=== PATIENT | female | born 1940 | race African-American/Black ===

== ENCOUNTER 2017-02-11 10:49 | Emergency (ER) | payer MEDICAID, MEDICARE, OTHER ==
[~2017-02-11] VITALS: Ht 165.1 cm; Wt 95.0 kg
[2017-02-11 10:56] VITALS: BP 0/0
== END 2017-02-11 10:52 | disposition expired ==
LOC: ER 10:49
DX: R09.2 Respiratory arrest (principal); J45.909 Unspecified asthma, uncomplicated; I10 Essential (primary) hypertension
CPT/HCPCS: 99285